=== PATIENT | female | born 1960 | race Caucasian/White ===

== ENCOUNTER 2018-09-28 13:04 | Emergency (ER) | payer BC ==
[~2018-09-28 13:04] MED LIST: FLUT16SP19 NS; OMEP40CA48 PO
[2018-09-28] MEDS ORDERED: MULT1CAP59 PO (13:18)
[2018-09-28] MEDS ORDERED: [UNRECOGNIZED DRUG - CODE] (13:18)
--- NOTE | 2018-09-28 13:19 | ER Report ---
History and Physical Time Seen By MD: 13:19 Hx. of Stated Complaint: Patient having headache and ear pressure. Has seen Urgent care twice in the last week. On antibiotics and steroids but getting worse and now can't open eyes with having worsening pain in eyes and blurriness HPI/ROS CHIEF COMPLAINT: Dizziness, ear pressure, headache HISTORY OF PRESENT ILLNESS: 58-year-old female patient presents to emergency room with complaint of dizziness, ear pressure and headache. Patient states this been going on since last . She states she was seen at urgent care. She is told that she had a sinus infection and was placed on antibiotics as well as steroids. Patient states she's not gotten any better. She states she is having continued headache, ear pressure and dizziness. She states the dizziness seems to be getting worse. She states she's been nauseated and did vomit 1 on . She states she's been taking medication as prescribed. She denies having any fevers, chills or diarrhea. Patient states she has been taking her medication as prescribed. She is not taking the Medrol Dosepak as she treated to a significant headache on night. REVIEW OF SYSTEMS: Respiratory: No cough, no dyspnea. Cardiovascular: No chest pain, no palpitations. Gastrointestinal: As noted above. Musculoskeletal: No back pain. Allergies: Coded Allergies: morphine (Verified Adverse Reaction, Intermediate, headache, 09/28/18) Home Meds Active Scripts Scopolamine (Scopolamine) 1 Mg/3 Day Patch.td.3, 1 PATCH.72H TD Q3D PRN for DIZZINESS, #3 PATCH.72H Prov:NEHEMIAS KIRKP 09/28/18 Lorazepam (ATIVAN) 0.5 Mg Tablet, 0.5 MG PO Q4-6H PRN for DIZZINESS, #20 TAB Prov:NEHEMIAS KIRKP 09/28/18 Reported Medications Multivitamin (MULTIVITAMINS) 1 Each Capsule, 1 EACH PO, CAPSULE 09/28/18 Soy Isofl/Blk Coh/Gr Tea/[place] ([employer] Caplet) 56 Mg-40 Mg-130 Mg Tablet 09/28/18 Fluticasone Prop 50 Mcg Ns (FLONASE 50 MCG NS) 16 Gm [place].susp, 2 SPRAYS NS QDAY, BOT 06/19/16 Omeprazole (OMEPRAZOLE) 40 Mg Capsule.dr, 40 MG PO QDAY TAKE ONE TABLET BY MOUTH ONCE A DAY 06/22/14 Past Medical/Surgical History Patient has a past medical history of migraines, pneumothorax secondary to trauma, reflux, urinary urgency, stress incontinence, fractured ribs, back pain. Patient has surgical history of cholecystectomy, hernia repair, hemorr hoidectomy, hysterectomy, left breast biopsy. Reviewed Nurses Notes: Yes Hx Smoking: No Smoking Status: Never Smoker Hx Substance Use Disorder: No Hx Alcohol Use: No Constitutional Vital Sign - Last 24 Hours 09/28/18 09/28/18 09/28/18 09/28/18 13:04 13:11 13:12 13:19 Temp 97.5 Pulse ??? 70 76 Resp 16 B/P (MAP) 146/99 146/99 (115) Pulse Ox 94 94 O2 Delivery Room Air 09/28/18 09/28/18 09/28/18 09/28/18 13:30 13:34 13:49 14:04 Pulse 70 ??? 67 B/P (MAP) 147/102 (117) Pulse Ox 93 94 94 09/28/18 09/28/18 09/28/18 09/28/18 14:19 14:30 14:34 14:49 Pulse 63 65 63 B/P (MAP) 145/89 (107) Pulse Ox 94 96 92 Physical Exam General Appearance: The patient is alert, has no immediate need for airway protection and no current signs of toxicity. ENT: Patient did have bulging tympanic membranes bilaterally, mucous membranes are moist. Respiratory: Chest is non tender, lungs are clear to auscultation. Cardiac: regular rate and rhythm Gastrointestinal: Abdomen is soft and non tender, no masses, bowel sounds normal. Musculoskeletal: Neck: Neck is supple and non tender. Extremities have full range of motion and are non tender. Skin: No rashes or lesions. DIFFERENTIAL DIAGNOSIS: After history and physical exam differential diagnosis was considered for dizziness including but not limited to peripheral and central causes of vertigo, orthostatic causes including dehydration, and blood loss. Medical Decision Making Data Points Result Diagram: 09/28/18 1342 09/28/18 1342 Laboratory Hematology Test 09/28/18 13:42 Red Blood Count 5.57 M/uL (4.17-5.56) Mean Corpuscular Volume 88.8 fL (80.0-96.0) Mean Corpuscular Hemoglobin 30.0 pg (26.0-33.0) Mean Corpuscular Hemoglobin Concent 33.7 g/dL (32.0-36.0) Red Cell Distribution Width 13.3 % (11.5-14.5) Mean Platelet Volume 8.2 fL (7.2-11.1) Neutrophils (%) (Auto) 61.4 % (39.4-72.5) Lymphocytes (%) (Auto) 28.4 % (17.6-49.6) Monocytes (%) (Auto) 6.4 % (4.1-12.4) Eosinophils (%) (Auto) 3.0 % (0.4-6.7) Basophils (%) (Auto) 0.8 % (0.3-1.4) Nucleated RBC Relative Count (auto) 0.1 /100WBC Neutrophils # (Auto) 4.7 K/uL (2.0-7.4) Lymphocytes # (Auto) 2.2 K/uL (1.3-3.6) Monocytes # (Auto) 0.5 K/uL (0.3-1.0) Eosinophils # (Auto) 0.2 K/uL (0.0-0.5) Basophils # (Auto) 0.1 K/uL (0.0-0.1) Nucleated RBC Absolute Count (auto) 0.01 K/uL Sodium Level 138 mmol/L (137-145) Potassium Level 3.8 mmol/L (3.5-5.0) Chloride Level 104 mmol/L (98-107) Carbon Dioxide Level 24 mmol/L (22-31) Blood Urea Nitrogen 13 mg/dl (7-18) Creatinine 0.70 mg/dl (0.52-1.04) Glomerular Filtration Rate Calc > 60.0 Random Glucose 103 mg/dl (75-110) Calcium Level 9.4 mg/dl (8.4-10.2) Total Bilirubin 0.5 mg/dl (0.2-1.3) Aspartate Amino Transf (AST/SGOT) 31 U/L (0-35) Alanine Aminotransferase (ALT/SGPT) 39 U/L (0-56) Alkaline Phosphatase 75 U/L (0-126) Troponin I < 0.012 ng/ml Total Protein 7.7 g/dl (6.3-8.2) Albumin 4.1 g/dl (3.5-5.0) Chemistry Test 09/28/18 13:42 White Blood Count 7.6 k/uL (4.5-11.0) Red Blood Count 5.57 M/uL (4.17-5.56) Hemoglobin 16.7 g/dL (12.0-16.0) Hematocrit 49.5 % (34.0-47.0) Mean Corpuscular Volume 88.8 fL (80.0-96.0) Mean Corpuscular Hemoglobin 30.0 pg (26.0-33.0) Mean Corpuscular Hemoglobin Concent 33.7 g/dL (32.0-36.0) Red Cell Distribution Width 13.3 % (11.5-14.5) Platelet Count 252 K/uL (150-450) Mean Platelet Volume 8.2 fL (7.2-11.1) Neutrophils (%) (Auto) 61.4 % (39.4-72.5) Lymphocytes (%) (Auto) 28.4 % (17.6-49.6) Monocytes (%) (Auto) 6.4 % (4.1-12.4) Eosinophils (%) (Auto) 3.0 % (0.4-6.7) Basophils (%) (Auto) 0.8 % (0.3-1.4) Nucleated RBC Relative Count (auto) 0.1 /100WBC Neutrophils # (Auto) 4.7 K/uL (2.0-7.4) Lymphocytes # (Auto) 2.2 K/uL (1.3-3.6) Monocytes # (Auto) 0.5 K/uL (0.3-1.0) Eosinophils # (Auto) 0.2 K/uL (0.0-0.5) Basophils # (Auto) 0.1 K/uL (0.0-0.1) Nucleated RBC Absolute Count (auto) 0.01 K/uL Glomerular Filtration Rate Calc > 60.0 Calcium Level 9.4 mg/dl (8.4-10.2) Total Bilirubin 0.5 mg/dl (0.2-1.3) Aspartate Amino Transf (AST/SGOT) 31 U/L (0-35) Alanine Aminotransferase (ALT/SGPT) 39 U/L (0-56) Alkaline Phosphatase 75 U/L (0-126) Troponin I < 0.012 ng/ml Total Protein 7.7 g/dl (6.3-8.2) Albumin 4.1 g/dl (3.5-5.0) EKG/Imaging EKG Interpretation 12 lead EKG: Rhythm: normal sinus rhythm with ventricular rate of 80 bpm [place]: normal QRS: normal ST segments: normal Imaging CHEST PA AND LAT Additional pertinent History: Dizziness COMPARISON STUDIES: none FINDINGS: Support lines and catheters: None Lungs and Pleura: Lung frank well expanded with no infiltrates or consolidations. No parenchymal mass lesions are seen. There are no effusions Heart and vasculature: Negative. Etelvina and Mediastinum: Negative. Bones and Chest wall: Old healed right rib fractures Upper Abdomen: Hiatal hernia IMPRESSION: 1. Negative chest for acute cardiopulmonary disease. 2. Hiatal hernia. 3. Old healed right rib fractures Report Dictated By: Jordi Fowler MD at 09/28/2018 2:17 PM Report E-Signed By: Jordi Fowler MD at 09/28/2018 2:19 PM EXAMINATION: Head CT without intravenous contrast HISTORY: Dizziness. COMPARISON: None. TECHNIQUE: Contiguous axial images were obtained from the skull base to the vertex without intravenous contrast. Sagittal and coronal reformatted images are also submitted. One of the following dose optimization techniques was utilized in the performance of this exam: Automated exposure control; adjustment of the mA and/or kV according to the patient's size; or use of an iterative reconstruction technique. Specific details can be referenced in the facility's radiology CT exam operational policy. FINDINGS: Brain and intracranial structures: Ventricles, sulci, and cisterns are normal in size. [place]-white matter differentiation is maintained. No midline shift, acute hemorrhage, acute infarct, or mass. Vessels: Mild calcified plaque of the carotid siphons. Calvarium / scalp: Negative. Skull base / visualized face: Negative. Visualized sinuses / orbits: Small mucous retention cysts in the maxillary sinuses. IMPRESSION: No CT evidence of acute intracranial pathology. Report Dictated By: Agusto Mansfield MD at 09/28/2018 2:24 PM Report E-Signed By: Agusto Mansfield MD at 09/28/2018 2:30 PM ED Course/Re-evaluation ED Course Patient was admitted to an exam room, history and physical were obtained. Differential diagnoses were considered. On examination lungs are clear, heart is regular, abdomen is soft and nontender. Patient had a negative [place]-Hallpike. CT scan of the head was done, EKG, chest x-ray, CBC, CMP, troponin. Labs were unremarkable, imaging results were negative, EKG showed normal sinus rhythm. Patient was given scopolamine patch as well as a dose of Ativan 0.5 mg. On reevaluation patient states she does feel slightly better. We will go ahead and discharge her home at this time. We will give her prescription for scopolamine as well as Ativan. She states that as directed. She is to get plenty of rest, increase fluid intake. She is follow-up with primary care provider the next week. She is return to emergency room if condition worsens. Patient verbalized understanding and agreement with plan. Decision to Disposition Date: Sep 28, 2018 Decision to Disposition Time: 15:37 Depart Departure Latest Vital Signs Vital Signs Date Time Temp Pulse Resp B/P (MAP) Pulse Ox O2 Delivery O2 Flow Rate FiO2 09/28/18 14:49 63 92 09/28/18 14:30 145/89 (107) 09/28/18 13:11 97.5 16 Room Air Impression: Primary Impression: Acute labyrinthitis Condition: Improved Disposition: HOME OR SELF-CARE New Scripts Scopolamine (Scopolamine) 1 Mg/3 Day Patch.td.3 1 PATCH.72H TD Q3D PRN for DIZZINESS, #3 PATCH.72H Prov: NEHEMIAS KIRK 09/28/18 Lorazepam (ATIVAN) 0.5 Mg Tablet 0.5 MG PO Q4-6H PRN for DIZZINESS, #20 TAB Prov: NEHEMIAS KIRK 09/28/18 Patient Instructions: Labyrinthitis (ED) Additional Instructions: Increase fluid intake. Get plenty of rest. Follow up with your primary care provider in the next week for re-evaluation. Take medications as prescribed. Return to the ER if condition worsens. Problem Qualifiers Primary Impression: Acute labyrinthitis Laterality: bilateral Qualified Codes: H83.03 - Labyrinthitis, bilateral NEHEMIAS KIRK Sep 28, 2018 13:19
[2018-09-28] MEDS ORDERED: NS(*) 0.9% 1000 ML BAG 1,000 ML IV ONE (13:29)
--- NOTE | 2018-09-28 13:39 | EKG ---
FACILITY: [facility] PATIENT NAME: JOSSELYN GUILLAUME : [id number] MR: [id number] V: [id number] EXAM DATE: ORDERING PHYSICIAN: NEHEMIAS KIRK TECHNOLOGIST: Test Reason : neuro Blood Pressure : / mmHG Vent. Rate : 080 BPM Atrial Rate : 080 BPM P-R Int : 148 ms QRS Dur : 086 ms QT Int : 404 ms P-R-T Axes : 062 048 048 degrees QTc Int : 465 ms Normal sinus rhythm with sinus arrhythmia Normal ECG No previous ECGs available Confirmed by JANY MORALES ([id number]) on 09/28/2018 4:34:41 PM Referred By: Confirmed By:JANY MORALES
[2018-09-28 13:53] LABS: PLATELET COUNT, AUTOMATED 252 K/uL (150-450)
--- NOTE | 2018-09-28 14:23 | RADIOLOGY IMAGING REPORT ---
FACILITY: [facility] PATIENT NAME: Zulema Chatman : 1960 MR: [id number] V: [id number] EXAM DATE: ORDERING PHYSICIAN: NEHEMIAS KIRK TECHNOLOGIST: Location: [facility] [place] Patient: Zulema Chatman : 1960 Visit/Account:[id number] Date of Sevice: 09/28/2018 CHEST PA AND LAT Additional pertinent History: Dizziness COMPARISON STUDIES: none FINDINGS: Support lines and catheters: None Lungs and Pleura: Lung frank well expanded with no infiltrates or consolidations. No parenchymal ma ss lesions are seen. There are no effusions Heart and vasculature: Negative. Etelvina and Mediastinum: Negative. Bones and Chest wall: Old healed right rib fractures Upper Abdomen: Hiatal hernia IMPRESSION: 1. Negative chest for acute cardiopulmonary disease. 2. Hiatal hernia. 3. Old healed right rib fractures Report Dictated By: Jordi Fowler MD at 09/28/2018 2:17 PM Report E-Signed By: Jordi Fowler MD at 09/28/2018 2:19 PM WSN:[email or web address]
[2018-09-28 14:30] VITALS: BP 145/89
--- NOTE | 2018-09-28 14:34 | RADIOLOGY IMAGING REPORT ---
FACILITY: [facility] [place] PATIENT NAME: Zulema Chatman : 1960 MR: [id number] V: [id number] EXAM DATE: ORDERING PHYSICIAN: NEHEMIAS KIRK TECHNOLOGIST: Location: [facility] [place] Patient: Zulema Chatman : 1960 Visit/Account:[id number] Date of Sevice: 09/28/2018 EXAMINATION: Head CT without intravenous contrast HISTORY: Dizziness. COMPARISON: None. TECHNIQUE: Contiguous axial images were obtained from the skull base to the vertex without intraven ous contrast. Sagittal and coronal reformatted images are also submitted. One of the following dose optimization techniques was utilized in the performance of this exam: Autom ated exposure control; adjustment of the mA and/or kV according to the patient's size; or use of an i terative reconstruction technique. Specific details can be referenced in the facility's radiology C T exam operational policy. FINDINGS: Brain and intracranial structures: Ventricles, sulci, and cisterns are normal in size. [place]-white m atter differentiation is maintained. No midline shift, acute hemorrhage, acute infarct, or mass. Vessels: Mild calcified plaque of the carotid siphons. Calvarium / scalp: Negative. Skull base / visualized face: Negative. Visualized sinuses / orbits: Small mucous retention cysts in the maxillary sinuses. IMPRESSION: No CT evidence of acute intracranial pathology. Report Dictated By: Agusto Mansfield MD at 09/28/2018 2:24 PM Report E-Signed By: Agusto Mansfield MD at 09/28/2018 2:30 PM WSN:[email or web address]
[2018-09-28] MEDS ORDERED: LORazepam 0.5 MG TAB PO ONE (14:40)
[2018-09-28] MEDS ORDERED: SCOPOLAMINE 1.5 MG PATCH TD ONE (14:40)
[2018-09-28] MEDS ORDERED: SCOP1PAT16 TD (15:35)
[2018-09-28] MEDS ORDERED: LORA-1455 PO (15:35)
== END 2018-09-28 15:40 | disposition home or self-care (01) ==
LOC: ER 13:21
DX: H83.03 Labyrinthitis, bilateral (principal)
CPT/HCPCS: 70450; 71046; 84484; 85025; 93005; 96360; 99284; J7030; 82040; 82247; 82310; 82374; 82435; 82565; 82947; 84075; 84132; 84155; 84295; 84450; 84460; 84520